=== PATIENT | female | born 1970 | race African-American/Black ===

== ENCOUNTER 2017-06-08 07:07 | Emergency (ER) | payer BC, MEDICAID ==
[~2017-06-08] VITALS: Ht 165.1 cm; Wt 86.0 kg
[2017-06-08] MEDS ORDERED: KETOROLAC 60MG/2ML VIAL IM ONE (08:45)
[2017-06-08 10:04] VITALS: BP 111/58
== END 2017-06-08 10:33 | disposition home or self-care (01) ==
LOC: ER 07:34
DX: M53.3 Sacrococcygeal disorders, not elsewhere classified (principal); M54.30 Sciatica, unspecified side; Z90.710 Acquired absence of both cervix and uterus
CPT/HCPCS: 72170; 81025; 96372; 99283; J1885; Z7610